=== PATIENT | male | born 1975 | race Caucasian/White ===

== ENCOUNTER 2022-01-27 08:46 | Outpatient (CLI) | payer OTHER, SELFPAY ==
[2022-01-27 14:15] LABS: Basophils Absolute Auto 0.03 K/uL (0.00-0.30); Basophils Percent Auto 0.3 % (0.0-3.0); Eosinophils Absolute Auto 0.23 K/uL (0.00-0.50); Eosinophils Percent Auto 2.6 % (0.0-7.0); Hematocrit 45.4 % (37.0-53.0); Hemoglobin* 14.9 gm/dL (13.5-17.5); Immature Granulocytes Abs Auto 0.04 K/uL (0.00-0.30); Lymphocytes Percent Auto 18.3 % (20-44); Mean Corpuscular HGB Conc 33 gm/dL (32-36); Mean Corpuscular Hemoglobin 30 pg (26-34); Mean Corpuscular Volume 90 fL (80-100); Monocytes Percent Auto 9.5 % (0.0-11.0); Neutrophils Absolute Auto 5.99 K/uL (1.7-7.0); Neutrophils Percent Auto 68.8 % (42.0-72.0); Platelet Count* 217 K/uL (140-440); RDW Coefficient of Variation % 12.9 % (11.5-15.5); Red Blood Count 5.05 m/uL (4.30-5.90); White Blood Count* 8.71 K/uL (4.50-11.00)
[2022-01-27 14:18] LABS: Slide Review Reflex No
[2022-01-27 14:29] LABS: Chloride* 103 mmol/L (96-114); Potassium* 5.1 mmol/L (3.6-5.1); Sodium* 141 mmol/L (135-149)
[2022-01-27 14:32] LABS: Blood Urea Nitrogen* 20 mg/dL (5-24); Carbon Dioxide* 27 mmol/L (20-32); Cholesterol* 178 mg/dL (90-199); Estimated Glomerular Filt Rate 95 ml/min
[2022-01-27 14:33] LABS: Calcium* 9.5 mg/dL (8.4-10.6); Glucose* 87 mg/dL (60-115); HDL Cholesterol* 35 mg/dL (>=40); LDL Cholesterol Calculated 115 mg/dL (<100); Triglycerides* 141 mg/dL (40-149)
== END 2022-01-27 08:47 | disposition home or self-care (01) ==
PROVIDERS: PCP Family Medicine; Visit Provider Family Medicine
DX: Z00.00 Encounter for general adult medical examination without abnormal findings (principal); Z13.6 Encounter for screening for cardiovascular disorders
CPT/HCPCS: 80048; 80061; 85025

== ENCOUNTER 2022-02-13 06:43 | Outpatient (CLI) | payer OTHER, SELFPAY ==
--- NOTE | 2022-02-13 08:07 | W.ANESCHARGE ---
Anesthesia Charges Start Date/Time Anesthesia Start Date: 02/13/22 Anesthesia Start Time: 07:40 Stop Date/Time Anesthesia Stop Date: 02/13/22 Anesthesia Stop Time: 08:03 Summary Emergency: No
--- NOTE | 2022-02-13 08:47 | W.ANESCHARGE ---
Anesthesia Charges Start Date/Time Anesthesia Start Date: 02/13/22 Anesthesia Start Time: 07:40 Stop Date/Time Anesthesia Stop Date: 02/13/22 Anesthesia Stop Time: 08:03 Summary Emergency: No
== END 2022-02-13 06:44 | disposition home or self-care (01) ==
PROVIDERS: PCP Family Medicine; Visit Provider Internal Medicine
DX: Z12.11 Encounter for screening for malignant neoplasm of colon (principal); K63.5 Polyp of colon; Z80.0 Family history of malignant neoplasm of digestive organs
CPT/HCPCS: 00811; 45380; 88305; J2704

== ENCOUNTER 2023-11-29 16:58 | Emergency (ER) | payer OTHER, SELFPAY ==
[2023-11-29 17:03] VITALS: BP 176/113; PULSE 68; RESP 18; TEMP 35.6; O2SAT 98; BMI 36.9
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
--- NOTE | 2023-11-29 17:32 | CRLHL7_ITS ---
For Patients: As a result of the Century Cures Act, medical imaging exams and procedure reports are released immediately into your electronic medical record. You may view this report before your referring provider. If you have questions, please contact your health care provider. INDICATION: Left flank and groin pain COMPARISON: 10/23/2016 CT abdomen/pelvis TECHNIQUE: CT of the abdomen and pelvis without intravenous contrast. FINDINGS: Please note that absence of intravenous contrast limits evaluation of soft tissue and vascular structures. Lung bases: No pleural effusion. Liver: Smooth hepatic contour. Gallbladder and biliary tree: Unremarkable noncontrast CT appearance. Spleen: No splenomegaly. Pancreas: Unremarkable noncontrast CT appearance. Adrenal glands: Normal. Kidneys and ureters: Mild left-sided hydroureteronephrosis with an obstructing 3 millimeter calculus in the left distal ureter near the UVJ. No right-sided hydronephrosis. There are several nonobstructing bilateral renal calculi measuring up to 2 millimeters. Bladder: Unremarkable noncontrast CT appearance. Visualized reproductive organs: Unremarkable noncontrast CT appearance. Gastrointestinal tract: No focal abnormally dilated loops of bowel. Peritoneal cavity: No free fluid or free air. Lymph nodes: No enlarged abdominal or pelvic lymph nodes by CT size criteria. Vessels: No abdominal aortic aneurysm. Abdominal and pelvic wall: Mild diastasis of the rectus abdominis musculature. Bones: There are osseous degenerative changes. Chronic mild anterior vertebral body wedging again noted centered at the thoracolumbar junction. IMPRESSION: 1. Obstructing 3 millimeter calculus in the left distal ureter near the UVJ with mild upstream hydroureteronephrosis. 2. Several small bilateral nonobstructing renal calculi. Please note that all CT scans at this facility use dose modulation, iterative reconstruction, and/or weight-based dosing when appropriate to reduce radiation dose to as low as reasonably achievable. Dictated by Bobo Schmitt MD @ 11/29/2023 6:30:47 PM (Electronically Signed)
[2023-11-29] MEDS: KETOROLAC 15 MG/ML inj IVP (17:44)
[2023-11-29 17:51] LABS: Basophils Percent Auto 0.2 % (0.0-3.0); Eosinophils Percent Auto 1.2 % (0.0-7.0); Hematocrit 42.8 % (37.0-53.0); Hemoglobin* 13.9 gm/dL (13.5-17.5); Immature Granulocytes Pct Auto 0.2 %; Lymphocytes Percent Auto 10.7 % (20-44); Mean Corpuscular HGB Conc 33 gm/dL (32-36); Mean Corpuscular Hemoglobin 30 pg (26-34); Mean Corpuscular Volume 91 fL (80-100); Monocytes Percent Auto 7.3 % (0.0-11.0); Neutrophils Percent Auto 80.4 % (42.0-72.0); Platelet Count* 165 K/uL (140-440); RDW Coefficient of Variation % 13.3 % (11.5-15.5); Red Blood Count 4.71 m/uL (4.30-5.90); White Blood Count* 12.01 K/uL (4.50-11.00)
[2023-11-29 17:57] LABS: Slide Review Reflex No
[2023-11-29 18:07] LABS: Chloride* 106 mmol/L (96-114); Potassium* 3.7 mmol/L (3.6-5.1); Sodium* 140 mmol/L (135-149)
[2023-11-29 18:09] LABS: Appearance Urine Clear (Clear); Bilirubin Urine Negative (Negative); Blood Urine 2+ (Negative); Color Urine Yellow (Yellow); Glucose Urine Negative (Negative); Ketones Urine Negative (Negative); Leukocyte Esterase Urine Negative (Negative); Nitrite Urine Negative (Negative); Protein Urine Negative (Negative); Specific Gravity Urine 1.015 (1.000-1.030); Urobilinogen Urine 0.2 (0.2-1.0); pH Urine 5.5 (5.0-8.5)
[2023-11-29 18:10] LABS: Anion Gap 13 mEq/L (7-15); Blood Urea Nitrogen* 25 mg/dL (5-24); Carbon Dioxide* 21 mmol/L (20-32); Creatinine* 1.3 mg/dL (0.5-1.5); Est. Creatinine Clearance* 80.24; Estimated Glomerular Filt Rate 69 ml/min; Glucose* 104 mg/dL (60-115)
[2023-11-29 18:11] LABS: Calcium* 9.4 mg/dL (8.4-10.6)
[2023-11-29 18:24] LABS: WBC Urine 0-2 (0-5)
== END 2023-11-29 19:51 | disposition home or self-care (01) ==
PROVIDERS: Emergency Provider Emergency Medicine; PCP Family Medicine
DX: N20.0 Calculus of kidney (principal)
CPT/HCPCS: 36415; 74176; 80048; 81001; 85025; 96374; 99283; 99284; J1885